=== PATIENT | female | born 1970 | race Caucasian/White ===

== ENCOUNTER 2017-03-15 17:27 | Observation (INO) | payer OTHER ==
[2017-03-15] MEDS ORDERED: CIPR500T2 PO (17:33)
[2017-03-15] MEDS ORDERED: ACET500C PO (17:33)
[2017-03-15] MEDS ORDERED: NORC5TAB PO (17:33)
[2017-03-15] MEDS ORDERED: CLAR30CA PO (17:33)
[2017-03-15] MEDS ORDERED: PRAV40TA2 PO (17:33)
[2017-03-15 21:15] VITALS: BP 140/67; PULSE 77; RESP 18; TEMP 98.7; O2SAT 97
[2017-03-15 22:13] VITALS: PULSE 84
[2017-03-16] MEDS: ACETAMINOPHEN 500 MG CPLT PO PRN ×2 (01:10→11:00)
[2017-03-16 05:50] VITALS: BP 147/91; PULSE 66; RESP 18; TEMP 97.8; O2SAT 97
[2017-03-16 08:29] VITALS: O2SAT 99
[2017-03-16] MEDS ORDERED: ONDANSETRON HCL 4 MG/2 ML VIAL IV PRN (08:30)
[2017-03-16] MEDS ORDERED: NITROGLYCERIN 0.4 MG SL 25 TABS/BTL SL PRN (08:30)
[2017-03-16 08:34] VITALS: BP 175/97; PULSE 80; RESP 18; TEMP 98.1; O2SAT 96
[2017-03-16] MEDS ORDERED: ASPIRIN 325 MG TAB PO SCH (09:00)
[2017-03-16] MEDS ORDERED: CIPROFLOXACIN 500 MG TAB PO SCH (09:00)
[2017-03-16] MEDS ORDERED: amLODIPine BESYLATE 5 MG TAB PO SCH (09:00)
--- NOTE | 2017-03-16 09:20 | HHI.HP ---
HPI Primary Care Physician Primary Care Physician located in [place], [place] (she cannot remember name of physician) Chief Complaint Chest heaviness History of Present Illness 46-year-old female with past medical history of hypertension, hyperlipidemia, and recent diagnosis of kidney stone presents to the emergency room for further evaluation of chest pressure. Onset yesterday morning approximately 10:30 after leaving primary care provider's office. Location substernal. Described as intermittent squeezing and heaviness. Describes 2 separate chest pains. Chest heaviness comes on quickly and squeezing pain comes on gradually. Pains generally do not occur at same time. Chest discomfort increased in frequency and intensity therefore decided to go to the emergency room for further evaluation. No radiation of pain. No associated symptoms with chest pain. Precipitating factors unknown, although she states yesterday after leaving doctor's appointment she was quite upset. No known relieving factors. Endorses Sunday she was seen at [facility] diagnosed with kidney stone. She was given antibiotics and told to see a passenger elevator operator. Since this time she has had intermittent nausea, no vomiting, no change in appetite, and taking antibiotics as ordered. Denies any dysuria. She has been straining her urine has not passed stone that she is aware. Continues to have right CVA tenderness. Review of Systems General: No fatigue,weakness, fever, chills, recent illnes, recent travel, or change in appetite. HEENT: No MORRIS, no vision changes, no nasal congestion or drainage CV: As stated above. Continues to have intermittent chest pressure. No palpitations, intermittent leg pain, or dizziness. RESP: No SOB, cough, wheeze, or recent URI. GI: Nausea has improved. No episodes of vomiting. No bowel changes, diarrhea, constipation, pain, distention, or blood in the stool. No unintentional weight gain or weight loss : No dysuria, urgency, frequency, or hematuria. Recently diagnosed Sunday with kidney stone, currently taking antibiotic and Tylenol for pain. EXT: No lower leg edema, no paraesthesias MS: No discomfort or change in ROM NEURO: No difficulty with balance, LOC, or motor/sensory deficits PSYCH: No anxiety, depression, or situational stress. Endorses yesterday after leaving doctor's office she felt anxious, stating "I was lectured for over an hour regarding my blood pressure and risks of stroke." SKIN: No rashes, no concerning lesions Past Family Social History Allergies: Coded Allergies: Amoxicillin (Verified Allergy, Severe, Anaphylaxis, 03/15/17) Ampicillin (Verified Allergy, Severe, Anaphylaxis, 03/15/17) Bactrim (Verified Allergy, Severe, Hives, 03/15/17) Doxycycline (Verified Allergy, Severe, Anaphylaxis, 03/15/17) Erythromycin (Verified Allergy, Severe, Anaphylaxis, 03/15/17) Penicillin (Verified Allergy, Severe, Anaphylaxis, 03/15/17) Past Medical History Hypertension, hyperlipidemia, kidney stones Past Surgical History None Reported Medications Reported Acetaminophen 500 Mg Cap 500 Mg PO Q4-6H PRN [place] (Hydrocodone-Acetaminophen) 5-325 mg Tab 1 Tab PO Q4H PRN Ciprofloxacin (Ciprofloxacin HCl) 500 Mg Tab 500 Mg PO BID Claravis (Isotretinoin) 30 Mg Cap 30 Mg PO BID MAX 150 MG/KG PER 20 WEEKS THERAPY Pravastatin 40 Mg Tab 40 Mg PO QHS Active Ordered Medications Current Medications Medications (Trade) Dose Ordered Sig/Ryan Route Start Time Stop Time Status Last Admin (Tylenol) 500 mg Q4H PRN PO 03/16/17 01:15 03/16/17 01:10 (Zofran Inj) 4 mg Q6H PRN IV 03/16/17 08:30 (Nitrostat Sl) 0.4 mg Q5M PRN SL 03/16/17 08:30 (Aspirin) 325 mg DAILY PO 03/16/17 09:00 (Cipro) 500 mg BID PO 03/16/17 09:00 (Norvasc) 5 mg DAILY PO 03/16/17 09:00 Family History Noncontributory for early onset cardiovascular disease Social History Known hypertension endorses noncompliance with medication. Recently diagnosed with hyperlipidemia. History of gestational diabetes. Quit smoking 2000. Prior to quitting smoking 1 pack daily 16 years. Denies any alcohol or illegal drug use. Endorses a healthy lifestyle, works as a massage therapist, . Past cardiac testing None Physical Exam Vital Signs Vital Signs Date Time Temp Pulse Resp B/P Pulse Ox O2 Delivery O2 Flow Rate FiO2 03/16/17 08:34 98.1 80 18 175/97 96 03/16/17 08:29 99 21 03/16/17 05:50 97.8 66 18 147/91 97 03/16/17 02:33 16 03/15/17 22:13 84 03/15/17 21:15 98.7 77 18 140/67 97 Physical Exam GENERAL: Alert WN, WD, NAD, pleasant, female HEAD: NC, AT EYES: Sclera clear, conjunctiva without injection ENT: Mucous membranes pink and moist NECK: Supple, no masses, trachea midline CV: RRR, without murmur, rub, gallop, no JVD, S1-S2 no S3-S4. No carotid bruits. RESP: Clear lungs throughout bilateral, no crackles, wheeze, rhonchi, symmetrical chest rise, nonlabored, able to speak in full sentences ABD: Soft, NT, ND, no masses, positive bowel tones BACK: Right sided CVAT, no scoliosis EXT: Pulses +24, no dependent edema MS: Normal tone 4 extremities, nontender, no obvious deformities, full range of motion NEURO: CN II through CN XII grossly intact, motor strength 5/5, gait WNL PSYCH: A+O 3, pleasant affect, appropriate speech, appropriate mood and affect , insight and judgment SKIN: Normal turgor, normal texture, no lesions, no rashes, brisk cap refill, even hair distribution Laboratory CBC and CMP completed" ER potassium level III.3 glucose random 167 otherwise unremarkable. Laboratory Tests Test 03/15/17 03/15/17 03/16/17 19:40 23:15 01:15 Troponin I LESS THAN 0.02 LESS THAN 0.02 LESS THAN 0.02 Imaging Chest x-ray read by radiologist unremarkable. Completed an [place] [facility]. Course EKGs EKG shows normal sinus rhythm, normal axis, nonspecific ST changes, inverted T- wave in lead III Assessment and Plan Assessment and Plan #1 Chest painminute chest pain center. Ruled out with 3 sets of cardiac enzymes and EKGs. Will be seen and evaluated by Dr. Jesse Beck. Nuclear treadmill ordered. Further disposition to follow. #2 Hypertensiondiscussed in length importance of tight blood pressure control, compliance of medication and PCP follow-up appointments, and acute/chronic risk associated with long-standing, uncontrolled elevated blood pressure. Amlodipine 5 mg daily by mouth, clonidine 0.1 mg every 6 hours when necessary for systolic blood pressure greater than 180 and diastolic greater than 100. #3 Kidney stone-continue Cipro and follow-up with passenger elevator operator as previously instructed #4 Hyperlipidemiacontinue pravastatin Shu Prince Mar 16, 2017 09:20
[2017-03-16] MEDS ORDERED: cloNIDine HCL 0.1 MG TAB PO PRN (10:00)
--- NOTE | 2017-03-16 11:27 | RADRPT ---
EXAM DATE/TIME: 03/16/2017 09:08 [facility] COMPARISON: No previous studies available for comparison. INDICATIONS : Substernal chest pain. Angina DOSE: 27.1 mCi Tc99m Myoview at stress 8.7 mCi Tc99m Myoview at rest REST HEART RATE: 87 BPM TARGET HEART RATE: 150 BPM MAX HEART RATE: 146 BPM REST BLOOD PRESSURE: 176/90 mmHg MAX BLOOD PRESSURE: mmHg EJECTION FRACTION: > 70% MEDICAL HISTORY : Hypertension. SURGICAL HISTORY : None. ENCOUNTER: Initial ACUITY: 1 day PAIN SCALE: 5/10 LOCATION: chest TECHNIQUE: The patient underwent upright treadmill exercise in the chest pain center. Continuous ECG tracing wa s monitored during stress. Gated SPECT imaging was performed after stress, and conventional SPECT im aging was performed at rest. The examination was performed on a SPECT/CT scanner, both attenuation-c orrected and non-corrected datasets were reviewed. FINDINGS: DISTRIBUTION: The maximum perfused segment at stress is in the lateral wall. PERFUSION STUDY: The pattern of perfusion at stress is within normal limits. GATED STUDY: There is intact wall motion and thickening without hypokinetic or dyskinetic segments. CONCLUSION: No reversible perfusion defects. No focal wall motion abnormalities. RISK CATEGORY: 1- Low Risk Shorty Diallo MD on March 16, 2017 at 11:23 Board Certified Radiologist. This report was verified electronically.
[2017-03-16] MEDS ORDERED: AMLO5TAB2 PO (12:16)
--- NOTE | 2017-03-16 12:17 | HHI.DCPOC ---
Discharge Care Plan Diagnosis: (1) Hypertension (2) Chest wall pain (3) Anxiety Goals to Promote Your Health * To prevent worsening of your condition and complications * To maintain your health at the optimal level Directions to Meet Your Goals Take your medications as prescribed Follow your dietary instruction Follow activity as directed Keep your appointments as scheduled Take your immunizations and boosters as scheduled If your symptoms worsen call your PCP, if no PCP go to Urgent Care Center or Emergency Room Smoking is Dangerous to Your Health. Avoid second hand smoke Call the 24-hour hour crisis hotline for domestic abuse at Shu Prince Mar 16, 2017 12:16
--- NOTE | 2017-03-16 12:41 | TR ---
Date Performed: 03/16/2017 Time Performed: 09:55:34 DOCTOR: Jesse Beck DRUG LIST: CLINICAL HISTORY: REASON FOR TEST: REASON FOR ENDING: OBSERVATION: CONCLUSION: [place] protocol completed. Stopped sec to leg fatigue. No repro chest discomfort. Max imum [id number] Target HR Achieved=83.0% Maximum RJ=423/90 Total Exercise Time=8:32. No st t segment melgar ges. BP response related to clonidine 0.1mg given prior to exam. Nuclear images pending. Recovery qu ick and unremarkable. COMMENTS: Conclusion: Normal treadmill exercise. No evidence of ischemia.
--- NOTE | 2017-03-16 12:43 | EKG ---
Date Performed: 03/16/2017 Time Performed: 02:08:50 PTAGE: 46 years EKG: Sinus rhythm Normal ECG PREVIOUS TRACING : 03/15/2017 23.57 Since previous tracing, no significant change noted DOCTOR: Jesse Beck Interpretating Date/Time 03/16/2017 12:43:15
--- NOTE | 2017-03-16 12:45 | EKG ---
Date Performed: 03/15/2017 Time Performed: 23:57:42 PTAGE: 46 years EKG: Sinus rhythm Normal ECG PREVIOUS TRACING : 03/15/2017 23.56 Since previous tracing, no significant change noted DOCTOR: Jesse Beck Interpretating Date/Time 03/16/2017 12:44:01
--- NOTE | 2017-03-16 12:45 | EKG ---
Date Performed: 03/15/2017 Time Performed: 21:20:32 PTAGE: 46 years EKG: Sinus rhythm Normal ECG NO PREVIOUS TRACING DOCTOR: Jesse Beck Interpretating Date/Time 03/16/2017 12:44:32
== END 2017-03-16 13:00 | disposition home or self-care (01) ==
LOC: NEDDLT 19:26 → NEPGCP 19:27
DX: R07.89 Other chest pain (principal); I10 Essential (primary) hypertension; E78.5 Hyperlipidemia, unspecified; N20.0 Calculus of kidney; Z91.14 Patient's other noncompliance with medication regimen; Z87.891 Personal history of nicotine dependence
CPT/HCPCS: 71010; 78452; 80053; 82550; 83735; 84484; 84702; 85025; 93005; 93017; 99281; 99285; A9502; G0378